=== PATIENT | female | born 1995 | race Caucasian/White ===

== ENCOUNTER 2018-02-07 16:53 | Emergency (ER) | payer BC ==
[~2018-02-07] VITALS: Ht 180.3 cm; Wt 65.8 kg
[2018-02-07] MEDS ORDERED: ONDANSETRON ODT 8 MG ONE (17:28)
[2018-02-07] MEDS ORDERED: THIAMINE 100MG TABLET PO ONE (17:30)
[2018-02-07] MEDS ORDERED: ONDANSETRON ODT 4 MG PO ONE (17:30)
[2018-02-07 18:02] LABS: BASOPHILS # (AUTO) 0.02 x10^3/uL (0-0.1); BASOPHILS % (AUTO) 0 % (0-1); EOSINOPHILS # (AUTO) 0.05 x10^3/uL (0-0.4); EOSINOPHILS % (AUTO) 1 % (1-7); LYMPHOCYTES # (AUTO) 2.06 x10^3/uL (1-3.4); LYMPHOCYTES % (AUTO) 30 % (22-44); MD NO; MEAN CORPUSCULAR HEMOGLOBIN 32.8 pg (27.0-34.8); MEAN CORPUSCULAR HGB CONC 34.5 g/dL (32.4-35.8); MEAN PLATELET VOLUME 8.5 fL (7.4-10.4); MONOCYTES # (AUTO) 0.36 x10^3/uL (0.2-0.8); MONOCYTES % (AUTO) 5 % (2-9); NEUTROPHILS % (AUTO) 63 % (42-75); PLATELET COUNT 245 x10^3/uL (130-400); RED BLOOD COUNT 4.54 x10^6/uL (3.82-5.3); RED CELL DISTRIBUTION WIDTH 13.4 % (9.6-15.2)
[2018-02-07 18:13] LABS: ALANINE AMINOTRANSFERASE 23 U/L (12-78); ANION GAP 9 mmol/L (5-15); CALCIUM 9.3 mg/dL (8.5-10.1); CHLORIDE 105 mmol/L (98-107); CREATININE 0.77 mg/dL (0.55-1.02)
[2018-02-07 18:17] LABS: ALKALINE PHOSPHATASE 71 U/L (45-117); TOTAL PROTEIN 7.7 g/dL (6.4-8.2)
[2018-02-07] MEDS ORDERED: THIAMINE 100MG TABLET ONE (18:35)
[2018-02-07 19:00] VITALS: BP 123/74
== END 2018-02-07 19:11 | disposition home or self-care (01) ==
LOC: ED 19:04
DX: G43.A0 Cyclical vomiting, in migraine, not intractable (principal); F10.10 Alcohol abuse, uncomplicated; F17.200 Nicotine dependence, unspecified, uncomplicated; R19.7 Diarrhea, unspecified
CPT/HCPCS: 36415; 80053; 80307; 83690; 84703; 85025; 99284; Q0162